=== PATIENT | male | born 1975 | race Caucasian/White ===

== ENCOUNTER 2018-01-19 11:55 | Day surgery (SDC) | payer BC, OTHER ==
[~2018-01-19 11:55] MED LIST: ACETAMINOPHEN 1,000 MG/100 ML BTL IV ONE
[2018-01-19] MEDS ORDERED: SEVOFLURANE 250 ML INH ONE (11:56)
[2018-01-19] MEDS ORDERED: ROPIVACAINE HCL (NAROPIN) /PF 5MG/ML 20ML VIAL IV ONE (11:56)
[2018-01-19] MEDS ORDERED: DEXAMETHASONE 4 MG/ML 1ML VIAL IVP ONE (11:56)
[2018-01-19] MEDS ORDERED: FENTANYL PF 100MCG/2ML VIAL IV ONE (11:56)
[2018-01-19] MEDS ORDERED: PROPOFOL 10 MG/ML VIAL IV ONE (11:56)
[2018-01-19] MEDS ORDERED: MIDAZOLAM HCL 2MG/2ML VIAL IV ONE (11:56)
[2018-01-19] MEDS ORDERED: KETOROLAC 30 MG/ML VIAL IVP ONE (11:56)
[2018-01-19] MEDS ORDERED: LIDOCAINE 1% MDV (10MG/ML) 20ML VIAL SQ ONE (11:56)
--- NOTE | 2018-01-20 13:00 | Operative Note ---
DATE OF SURGERY: 01/19/2018 Surgeon: Meng Yuan DO PREOPERATIVE DIAGNOSIS: Displaced angulated fracture of the left distal radius and ulna. POSTOPERATIVE DIAGNOSIS: Displaced angulated fracture of the left distal radius and ulna. OPERATION: Closed reduction and percutaneous pinning of left distal radius and ulna. DESCRIPTION OF PROCEDURE: This 42-year-old male was taken to the operating room and placed in the supine position on the operating room table. General anesthesia was induced. The left upper extremity was elevated and the splint was removed. The image intensifier was brought into the operative field. Closed reduction of the fracture was accomplished without difficulty. The left wrist was prepped with Hibiclens and draped in the usual sterile fashion. The image intensifier again brought into the sterile field, and the left wrist reduced to near anatomic reduction. Two 0.54 K wires were advanced from the radial styloid across the fracture site and into the medial cortex of the distal radius proximal to the fracture. Once the 2 pins had been satisfactorily positioned, the image intensifier was used to confirm position and alignment of the fracture as well as the position of the pins, and it was felt to be satisfactory. The wounds were cleansed. Sterile dressings applied with an AP plaster mold. The patient taken to the recovery room in satisfactory condition. The pins had been bent over and pin caps applied. GROSS PATHOLOGY: This patient had a comminuted fracture of the distal radius and ulna. Once the closed reduction had been accomplished, the patient demonstrated dramatic improvement of the position and alignment of the fracture fragments. Two 0.54 K wires were placed to stabilize this position. CC: Jack Russell DO [facility]ITALGreta
== END 2018-01-19 14:30 | disposition home or self-care (01) ==
LOC: SUR 11:55
PROVIDERS: ATTEND Orthopaedic Surgery
DX: S52.502A Unspecified fracture of the lower end of left radius, initial encounter for closed fracture (principal); S52.202A Unspecified fracture of shaft of left ulna, initial encounter for closed fracture; E78.00 Pure hypercholesterolemia, unspecified
CPT/HCPCS: 76000; J1885